=== PATIENT | male | born 1970 | race Caucasian/White ===

== ENCOUNTER 2018-08-22 19:10 | Emergency (ER) | payer SELFPAY ==
[~2018-08-22] VITALS: Ht 172.7 cm; Wt 93.0 kg
[2018-08-22 19:13] VITALS: BP 123/95
--- NOTE | 2018-08-22 19:15 | NUR ---
PT TAKEN TO BED 12
--- NOTE | 2018-08-22 19:36 | NUR ---
PATIENT LEFT WITHOUT BEING SEEN BY DR. Albrecht. NO FURTHER CARE PROVIDED FOR PATIENT.
== END 2018-08-22 19:36 | disposition left against medical advice (07) ==
LOC: MED 19:10
DX: M54.31 Sciatica, right side (principal); Z53.21 Procedure and treatment not carried out due to patient leaving prior to being seen by health care provider

== ENCOUNTER 2019-06-29 23:12 | Emergency (ER) | payer MEDICAID ==
[~2019-06-29] VITALS: Ht 175.3 cm; Wt 90.7 kg
[2019-06-29 23:17] VITALS: BP 110/79
--- NOTE | 2019-06-29 23:17 | NUR ---
TO BED # 09 AMBULATORY
[2019-06-29 23:25] VITALS: BP 110/79
--- NOTE | 2019-06-29 23:25 | NUR ---
PATIENT IS A 48 Y/O MALE WHO PRESENTS TO THE ED C/O SPIDER BITE. PT STATES THAT SYMPTOMS HAVE BEEN GOING ON X3 DAYS. NOTED SPIDER BITE TO L BUTTOCK WITH TENDERNESS. PT REPORTS 7/10 ACHING BUTTOCK PAIN THAT DOES NOT RADIATE. PT DENIES CP, SOB, N/V/D. PT AWAKE AND ALERT, RR EVEN/UNLABORED. PT REPOSITIONED FOR COMFORT, BED IN LOWEST POSITION. ER MD DR. GOMES NOTIFIED. WILL CONTINUE TO MONITOR. DENIES PM NKA
[2019-06-29] MEDS ORDERED: SULFAMETH/TRIMETH DS 800/160MG 1 TAB PO ONE (23:30)
[2019-06-29] MEDS ORDERED: IBUPROFEN 800 MG TAB PO ONE (23:30)
[2019-06-29] MEDS ORDERED: CEPHALEXIN 500 MG CAP PO ONE (23:30)
--- NOTE | 2019-06-30 | NUR ---
Patient discharged with v/s stable. Written and verbal after care instructions given and explained. Patient alert, oriented and verbalized understanding of instructions. Ambulatory with steady gait. All questions addressed prior to discharge. ID band removed. Patient advised to follow up with PMD. Rx of NAPROXEN 500MG, BACTRIM [id number] AND KEFLEX 500M given. Patient educated on indication of medication including possible reaction and side effects. Opportunity to ask questions provided and answered.
== END 2019-06-30 | disposition home or self-care (01) ==
LOC: MED 23:12
DX: S30.860A Insect bite (nonvenomous) of lower back and pelvis, initial encounter (principal); L03.317 Cellulitis of buttock; W57.XXXA Bitten or stung by nonvenomous insect and other nonvenomous arthropods, initial encounter; Y93.89 Activity, other specified; Y92.89 Other specified places as the place of occurrence of the external cause; Y99.8 Other external cause status
CPT/HCPCS: 99284

== ENCOUNTER 2020-05-17 02:32 | Emergency (ER) | payer MEDICAID ==
[~2020-05-17] VITALS: Ht 175.3 cm; Wt 86.2 kg
[2020-05-17 02:39] VITALS: BP 105/69
--- NOTE | 2020-05-17 02:44 | NUR ---
PT AMBULATED TO BED 11 WITH STEADY GAIT
--- NOTE | 2020-05-17 02:45 | NUR ---
49 y/o male presented to ED c/o left hip pain , 8/10 stabbing radiating down left leg x 2 weeks. Pt denies trauma / fall . Pt states he is unaware why his hip started hurting. Pt denies numbness and tingling in left extremity. Pt also came into ED w/ c/o of metal breaking off in R forearm x 1 month ago. Pt states he was injecting Meth and the needle broke off into his skin. Pt states he has been trying to get it out of his arm since the incident. Observed healed wound where pt states needle broke off, on palpation no observed object in pt arm. Pt breathing even and unlabored. Pt resting in bed , locked and in lowest position, HOB elevated, side rail x1. PMH: denies NKA
--- NOTE | 2020-05-17 02:48 | NUR ---
Dr. Mancilla examining patient.
[2020-05-17] MEDS ORDERED: IBUPROFEN 800 MG TAB PO ONE (02:55)
--- NOTE | 2020-05-17 02:56 | NUR ---
X-Ray at bedside.
[2020-05-17 03:20] VITALS: BP 105/69
== END 2020-05-17 03:21 | disposition home or self-care (01) ==
LOC: MED 02:32
DX: S51.811A Laceration without foreign body of right forearm, initial encounter (principal); F15.10 Other stimulant abuse, uncomplicated; F17.200 Nicotine dependence, unspecified, uncomplicated; M54.42 Lumbago with sciatica, left side; X58.XXXA Exposure to other specified factors, initial encounter; Y93.89 Activity, other specified; Y92.89 Other specified places as the place of occurrence of the external cause; Y99.8 Other external cause status
CPT/HCPCS: 73090; 73502; 99284; Q0092